=== PATIENT | male | born 1990 | race Caucasian/White ===

== ENCOUNTER 2018-03-27 09:05 | Emergency (ER) | payer BC ==
--- NOTE | 2018-03-27 09:50 | EDPHY ---
H & P Time Seen by Provider: 03/27/18 09:50 HPI/ROS: CHIEF COMPLAINT: Posterior chest pain after ketamine HISTORY OF PRESENT ILLNESS: Patient was partying all day on Friday doing ketamine by snorting started noticing his back hurt that day. He presents with pain in his posterior chest on the lower side, bilateral and severe. Worse with movement and associated with not being able to sleep. No coughing or shortness of breath or vomiting or hematuria. He does have it sometimes radiates to his friend. He is specifically concerned about his kidneys, which he read about on the Internet, and the degree of pain. Denies palpitations or syncope. REVIEW OF SYSTEMS: Eye: no change in vision ENT: no sore throat Cardiac: HPI Pulmonary: HPI Abdomen: no vomiting, diarrhea, abdominal pain Musculoskeletal: HPI Skin: no rash Neuro: no headache Constitutional: no fever : no urinary symptoms A comprehensive 10 point review of systems is otherwise negative aside from elements mentioned in the history of present illness. PAST MEDICAL HISTORY: Negative Family history: Negative for venous thromboembolism or coronary disease or aortic dissection. Social history: Ketamine as above, no alcohol, recently drove to [place] and travels a lot to go see [employer]. General Appearance: Alert and conversant, cooperative. Eyes: No scleral icterus. ENT, Mouth: Normal mucous membranes. Respiratory: Normal respiratory effort, breath sounds equal, lungs are clear to auscultation. No crepitus, speaks in full sentences. Cardiovascular: Regular rate and rhythm. Gastrointestinal: Minimal epigastric tenderness but no Ramirez sign and no rebound or guarding. Bowel sounds present and not distended. Neurological: Alert, face symmetric, normal motor and sensory in extremities. Ambulatory. Skin: Warm and dry, no rashes. No zoster or bruising. Musculoskeletal: No peripheral edema. No calf tenderness. Psychiatric: Not agitated. Emergency Department course/MDM: Differential considered including but not limited to pancreatitis, renal problem or stone, UTI, pneumothorax, pulmonary embolism, cardiac problem, rhabdomyolysis. EKG, chest x-ray and D-dimer, labs to include LFT and lipase and renal function. Low pretest probability for pulmonary embolism. Mullen x1 for pain. 1134: Results discussed with the patient, I think it is unlikely he has acute medical or surgical emergent condition. Symptomatic treatment and follow-up for referral. Smoking Status: Never smoked Constitutional: Initial Vital Signs Temperature (C) 36.8 C 03/27/18 09:10 Heart Rate 85 03/27/18 09:10 Respiratory Rate 18 03/27/18 09:10 Blood Pressure 141/86 H 03/27/18 09:10 O2 Sat (%) 97 03/27/18 09:10 O2 Delivery Mode Room Air Allergies/Adverse Reactions: No Known Allergies Allergy (Unverified 03/27/18 09:10) Home Medications: Medication Instructions Recorded Benadryl 03/27/18 Hydrocodone/APAP 5325 [Mullen 1 tab PO Q4-6PRN PRN #11 tab 03/27/18 5/325] Medical Decision Making - Diagnostics EKG Interpretation: 12-lead EKG interpreted by me; official reading is in computer system. My interpretation is sinus rhythm with borderline right axis, no acute ischemic changes. Imaging Results: Imaging Impressions Chest X-Ray 03/27/18 09:58 Impression: Clear lungs. No acute process. Imaging: I viewed and interpreted images myself - Data Points Laboratory Results: Laboratory Results 03/27/18 10:20 03/27/18 10:20 03/27/18 03/27/18 03/27/18 10:20 10:20 10:20 WBC RBC Hgb Hct MCV MCH MCHC RDW Plt Count MPV Neut % (Auto) Lymph % (Auto) Victoria % (Auto) Eos % (Auto) Baso % (Auto) Nucleat RBC Rel Count Absolute Neuts (auto) Absolute Lymphs (auto) Absolute Monos (auto) Absolute Eos (auto) Absolute Basos (auto) Absolute Nucleated RBC Immature Gran % Immature Gran # D-Dimer 0.29 ug/mLFEU ug/mLFEU (0.00-0.50) Sodium 142 mEq/L mEq/L (135-145) Potassium 3.9 mEq/L mEq/L (3.5-5.2) Chloride 106 mEq/L mEq/L (97-110) Carbon Dioxide 26 mEq/l mEq/l (22-31) Anion Gap 10 mEq/L mEq/L (6-14) BUN 10 mg/dL mg/dL (7-23) Creatinine 1.2 mg/dL mg/dL (0.7-1.3) Estimated GFR > 60 Glucose 99 mg/dL mg/dL (70-100) Calcium 9.4 mg/dL mg/dL (8.5-10.4) Total Bilirubin 0.4 mg/dL mg/dL (0.1-1.4) Conjugated Bilirubin 0.2 mg/dL mg/dL (0.0-0.5) Unconjugated Bilirubin 0.2 mg/dL mg/dL (0.0-1.1) AST 34 IU/L IU/L (17-59) ALT 50 IU/L IU/L (21-72) Alkaline Phosphatase 96 IU/L IU/L (38-126) Creatine Kinase 100 IU/L IU/L (0-224) POC Troponin I Total Protein 7.9 g/dL g/dL (6.3-8.2) Albumin 4.5 g/dL g/dL (3.5-5.0) Lipase 103 IU/L IU/L (23-300) 03/27/18 03/27/18 10:20 10:14 WBC 11.59 10^3/uL H 10^3/uL (3.80-9.50) RBC 5.05 10^6/uL 10^6/uL (4.40-6.38) Hgb 15.3 g/dL g/dL (13.7-17.5) Hct 44.7 % % (40.0-51.0) MCV 88.5 fL fL (81.5-99.8) MCH 30.3 pg pg (27.9-34.1) MCHC 34.2 g/dL g/dL (32.4-36.7) RDW 13.0 % % (11.5-15.2) Plt Count 463 10^3/uL H 10^3/uL (150-400) MPV 10.3 fL fL (8.7-11.7) Neut % (Auto) 75.7 % H % (39.3-74.2) Lymph % (Auto) 13.7 % L % (15.0-45.0) Victoria % (Auto) 7.9 % % (4.5-13.0) Eos % (Auto) 1.8 % % (0.6-7.6) Baso % (Auto) 0.6 % % (0.3-1.7) Nucleat RBC Rel Count 0.0 % % (0.0-0.2) Absolute Neuts (auto) 8.76 10^3/uL H 10^3/uL (1.70-6.50) Absolute Lymphs (auto) 1.59 10^3/uL 10^3/uL (1.00-3.00) Absolute Monos (auto) 0.92 10^3/uL H 10^3/uL (0.30-0.80) Absolute Eos (auto) 0.21 10^3/uL 10^3/uL (0.03-0.40) Absolute Basos (auto) 0.07 10^3/uL 10^3/uL (0.02-0.10) Absolute Nucleated RBC 0.00 10^3/uL 10^3/uL (0-0.01) Immature Gran % 0.3 % % (0.0-1.1) Immature Gran # 0.04 10^3/uL 10^3/uL (0.00-0.10) D-Dimer Sodium Potassium Chloride Carbon Dioxide Anion Gap BUN Creatinine Estimated GFR Glucose Calcium Total Bilirubin Conjugated Bilirubin Unconjugated Bilirubin AST ALT Alkaline Phosphatase Creatine Kinase POC Troponin I 0.00 ng/mL ng/mL (0.00-0.08) Total Protein Albumin Lipase Medications Given: Discontinued Medications Hydrocodone Bitart/Acetaminophen (Mullen 5/325) 1 tab PO EDNOW ONE Stop: 03/27/18 09:59 Last Admin: 03/27/18 10:14 Dose: 1 tab Ibuprofen (Motrin) 600 mg PO EDNOW ONE Stop: 03/27/18 11:35 Last Admin: 03/27/18 11:56 Dose: 600 mg Miscellaneous Medication (Icy Hot Lidocaine/Menthol 4%/1% Patch) 1 patch TD EDNOW ONE Stop: 03/27/18 12:10 Last Admin: 03/27/18 12:10 Dose: 1 patch Point of Care Test Results: Chemistry 03/27/18 10:14 POC Troponin I 0.00 ng/mL ng/mL (0.00-0.08) Departure - Departure Disposition: Home, Routine, Self-Care Clinical Impression: Acute upper back pain Condition: Good Instructions: Back Pain (ED) Additional Instructions: Ibuprofen 600 mg every 6-8 hours for the next 3 days. Referrals: Erma Santos MD [Medical Doctor] - As per Instructions Prescriptions: Hydrocodone/APAP 5/325 [Mullen 5/325] 1 tab PO Q4-6PRN PRN #11 tab PRN Reason: For Pain
--- NOTE | 2018-03-27 09:51 | CPEKG ---
Test Reason : OPEN Blood Pressure : / mmHG Vent. Rate : 077 BPM Atrial Rate : 078 BPM P-R Int : 144 ms QRS Dur : 102 ms QT Int : 388 ms P-R-T Axes : 077 091 062 degrees QTc Int : 440 ms Sinus rhythm Borderline right axis deviation Confirmed by Jose Antonio Menard ([id number]) on 03/27/2018 9:50:45 AM Referred By: PHYSICIAN ED Confirmed By:Jose Antonio Menard
[2018-03-27] MEDS ORDERED: HYDROCODONE/APAP 5/325 TAB PO ONE (09:58)
[2018-03-27 10:33] LABS: PLATELET COUNT 463 10^3/uL (150-400)
[2018-03-27] MEDS ORDERED: IBUPROFEN 600 MG TAB PO ONE (11:34)
[2018-03-27 12:04] VITALS: BP 110/89
[2018-03-27] MEDS ORDERED: LIDOCAINE 4%/MENTHOL 1% PATCH TD ONE ×2 (12:08→12:09)
[2018-03-27 12:16] LABS: CREATINE KINASE 100 IU/L (0-224)
[2018-03-27] MEDS ORDERED: PATCH REMOVAL 1 EA PATCH TD SCH (21:00)
== END 2018-03-27 12:49 | disposition home or self-care (01) ==
DX: M54.6 Pain in thoracic spine (principal); R94.31 Abnormal electrocardiogram [ECG] [EKG]
CPT/HCPCS: 84484-ER

== ENCOUNTER 2018-03-28 16:23 | Emergency (ER) | payer BC ==
--- NOTE | 2018-03-28 16:56 | EDPHY ---
HPI/HX/ROS/PE/MDM Narrative: CHIEF COMPLAINT: Back and abdominal pain HISTORY OF PRESENT ILLNESS: The patient is a 27 y/o male complaining of back and abdominal pain onset Friday, 4 days ago. The patient was partying on Friday and Friday, which included snorting Ketamine. Patient does use marijuana daily, reporting he smokes 10-20 times a day. He denies IV drug use or drinking excessive amount of alcohol. On Friday, patient developed lower posterior chest back pain as well as epigastric pain. Since that time he has reported waxing and waning episodes of severe epigastric and right upper quadrant pain, pain which feels like it radiates around to the lower chest posteriorly, and significant discomfort in the flank area. Patient had negative workup at that time which included labs and a chest x-ray. He was discharged with [place]. He reports having vomiting when taking the [place]. He also had some diarrhea. The pain significantly increased at 15:00, 2 hours ago. This pain is primarily located in his lower posterior chest and upper flank as well as in the epigastrium. No fever, chills, anterior chest pain, shortness of breath, palpitations, headache, lightheadedness. REVIEW OF SYSTEMS: Aside from elements discussed in the HPI, a comprehensive 10-point review of systems was reviewed and is negative. PAST MEDICAL HISTORY: Denies SOCIAL HISTORY: Ketamine use, no alcohol, recently drove to [place] from [place] VITAL SIGNS: Reviewed by me GENERAL: Well-developed, well-nourished, somewhat restless. Complaining of severe epigastric pain and pain in the lower posterior chest. Of note, the patient has 10-12 topical menthol patches on his back to help with this pain. HEENT: Atraumatic. Eyes: No icterus, no injection. Mouth: moist mucous membranes. No erythema or lesions. Neck: supple with no adenopathy. LUNGS: Clear to auscultation bilaterally, no wheezes, rhonchi or rales. CARDIAC: Regular rate and rhythm, no rubs, murmurs or gallops. ABDOMEN: RUQ and epigastric tenderness to palpation. No rebound. Nondistended. Soft, nondistended, bowel sounds normal. BACK: No midline spinal tenderness. No CVA tenderness. Patient indicates the majority of the pain is posterior chest. There is a palpable component to it. No crepitus noted. EXTREMITIES: No trauma. No edema. Range of motion is normal throughout. NEURO: Alert and oriented, grossly nonfocal. SKIN: Warm and dry, no rash. PSYCHIATRIC: Normal mentation, no agitation. Portions of this note were transcribed by a biomedical engineering technician. I personally performed a history, physical exam, medical decision making, and confirmed accuracy of information the transcribed note. ED Course: The patient is a 27 y/o male complaining of back and abdominal pain onset Friday, 4 days ago. He was seen in this emergency department yesterday and had a normal work up. He was sent home with a prescription for Vicodin but continues to have the pain and cramping. In addition he has continued to have intermittent nausea vomiting. This pain is primarily located in his lower posterior chest and upper flank. On exam he has RUQ and epigastric tenderness to palpation. He does not have any midline spinal tenderness. His lungs are also clear. Labs ordered; 1L IV NS and 0.5mg IV Dilaudid administered. 1741: Labs are normal, no white count, normal LFTs, normal lipase. Normal H pylori. 1900: I reviewed patient's UA which reveals 5-10 whites per high-power field, no blood. Will order CT scan to further evaluate lower chest pathology, kidneys , bowels. 2009: I spoke with the radiologist who reports that the patient has a normal abdominopelvic CT. 2030: Patient reports that his pain has improved since being here. He is unsure if it is mostly related to fluids or to a PPI. Evaluation thus far demonstrates no evidence of gallbladder disease, pancreatitis, H pylori infection, or intra-abdominal etiologies. Patient does have small amount of bacteria in his urine. Reassessed patient and discussed laboratory and imaging studies. There have been some reports of ketamine causing biliary colic type symptoms as well as ketamine causing urinary inflammation and a uropathy. Of note, the patch patient also does smoke marijuana heavily and daily. He may be developing a cannabinoid hyperemesis syndrome or abdominal pain related to chronic cannabinoid use. Plan was made to discharge the patient with oxycodone to use as needed for pain , Keflex for possible urinary tract infection, Ativan for abdominal pain, and Phenergan to use as needed for nausea. MDM: After obtaining the patient's history and performing an examination, differential diagnosis considered included but was not limited to appendicitis, cholecystitis, gastritis, pancreatitis, kidney stones, urinary tract infections and other causes. - Data Points Imaging Results: Imaging Impressions Abdomen CT 03/28/18 18:58 Impression: 1. Normal CT abdomen and pelvis with contrast enhancement. 2. No CT evidence of appendicitis, abscess or bowel obstruction. Findings discussed with Stephani Evans MD at 20:11 hour, 03/28/2018. Imaging: Discussed imaging studies w/ call center coordinator Radiologist, I viewed and interpreted images myself Laboratory Results: Laboratory Results 03/28/18 17:10 03/28/18 17:10 03/28/18 03/28/18 03/28/18 18:00 17:10 17:10 WBC RBC Hgb Hct MCV MCH MCHC RDW Plt Count MPV Neut % (Auto) Lymph % (Auto) Emanuel % (Auto) Eos % (Auto) Baso % (Auto) Nucleat RBC Rel Count Absolute Neuts (auto) Absolute Lymphs (auto) Absolute Monos (auto) Absolute Eos (auto) Absolute Basos (auto) Absolute Nucleated RBC Immature Gran % Immature Gran # Sodium 136 mEq/L mEq/L (135-145) Potassium 3.9 mEq/L mEq/L (3.5-5.2) Chloride 103 mEq/L mEq/L (97-110) Carbon Dioxide 25 mEq/l mEq/l (22-31) Anion Gap 8 mEq/L mEq/L (6-14) BUN 11 mg/dL mg/dL (7-23) Creatinine 1.1 mg/dL mg/dL (0.7-1.3) Estimated GFR > 60 Glucose 91 mg/dL mg/dL (70-100) Calcium 9.3 mg/dL mg/dL (8.5-10.4) Total Bilirubin 0.3 mg/dL mg/dL (0.1-1.4) Conjugated Bilirubin 0.2 mg/dL mg/dL (0.0-0.5) Unconjugated Bilirubin 0.1 mg/dL mg/dL (0.0-1.1) AST 30 IU/L IU/L (17-59) ALT 36 IU/L IU/L (21-72) Alkaline Phosphatase 84 IU/L IU/L (38-126) Total Protein 7.2 g/dL g/dL (6.3-8.2) Albumin 4.2 g/dL g/dL (3.5-5.0) Lipase 106 IU/L IU/L (23-300) Urine Color YELLOW Urine Appearance CLEAR Urine pH 5.0 (5.0-7.5) Ur Specific [place] 1.014 (1.002-1.030) Urine Protein NEGATIVE (NEGATIVE) Urine Ketones NEGATIVE (NEGATIVE) Urine Blood NEGATIVE (NEGATIVE) Urine Nitrate NEGATIVE (NEGATIVE) Urine Bilirubin NEGATIVE (NEGATIVE) Urine Urobilinogen NEGATIVE EU EU (0.2-1.0) Ur Leukocyte Esterase NEGATIVE (NEGATIVE) Urine RBC 1-3 /hpf /hpf (0-3) Urine WBC 5-10 /hpf H /hpf (0-3) Ur Epithelial Cells NONE SEEN /lpf /lpf (NONE-1+) Urine Mucus TRACE /lpf /lpf (NONE-1+) Urine Glucose NEGATIVE (NEGATIVE) H. pylori IgG Antibody NEGATIVE (NEG) 03/28/18 17:10 WBC 8.96 10^3/uL 10^3/uL (3.80-9.50) RBC 5.04 10^6/uL 10^6/uL (4.40-6.38) Hgb 15.4 g/dL g/dL (13.7-17.5) Hct 45.8 % % (40.0-51.0) MCV 90.9 fL fL (81.5-99.8) MCH 30.6 pg pg (27.9-34.1) MCHC 33.6 g/dL g/dL (32.4-36.7) RDW 12.8 % % (11.5-15.2) Plt Count 451 10^3/uL H 10^3/uL (150-400) MPV 10.2 fL fL (8.7-11.7) Neut % (Auto) 65.6 % % (39.3-74.2) Lymph % (Auto) 21.2 % % (15.0-45.0) Emanuel % (Auto) 7.8 % % (4.5-13.0) Eos % (Auto) 4.2 % % (0.6-7.6) Baso % (Auto) 1.0 % % (0.3-1.7) Nucleat RBC Rel Count 0.0 % % (0.0-0.2) Absolute Neuts (auto) 5.87 10^3/uL 10^3/uL (1.70-6.50) Absolute Lymphs (auto) 1.90 10^3/uL 10^3/uL (1.00-3.00) Absolute Monos (auto) 0.70 10^3/uL 10^3/uL (0.30-0.80) Absolute Eos (auto) 0.38 10^3/uL 10^3/uL (0.03-0.40) Absolute Basos (auto) 0.09 10^3/uL 10^3/uL (0.02-0.10) Absolute Nucleated RBC 0.00 10^3/uL 10^3/uL (0-0.01) Immature Gran % 0.2 % % (0.0-1.1) Immature Gran # 0.02 10^3/uL 10^3/uL (0.00-0.10) Sodium Potassium Chloride Carbon Dioxide Anion Gap BUN Creatinine Estimated GFR Glucose Calcium Total Bilirubin Conjugated Bilirubin Unconjugated Bilirubin AST ALT Alkaline Phosphatase Total Protein Albumin Lipase Urine Color Urine Appearance Urine pH Ur Specific [place] Urine Protein Urine Ketones Urine Blood Urine Nitrate Urine Bilirubin Urine Urobilinogen Ur Leukocyte Esterase Urine RBC Urine WBC Ur Epithelial Cells Urine Mucus Urine Glucose H. pylori IgG Antibody Medications Given: Discontinued Medications Cephalexin (Keflex 500 Mg Prepack#4) 1 btl TAKEHOME EDNOW ONE PRN Reason: Protocol Stop: 03/28/18 20:55 Last Admin: 03/28/18 21:11 Dose: 1 btl Cephalexin HCl (Keflex) 500 mg PO EDNOW ONE PRN Reason: Protocol Stop: 03/28/18 20:48 Last Admin: 03/28/18 20:58 Dose: 500 mg Hydromorphone HCl (Dilaudid) 0.5 mg IVP EDNOW ONE Stop: 03/28/18 17:13 Last Admin: 03/28/18 17:17 Dose: 0.5 mg Sodium Chloride (Ns) 1,000 mls @ 0 mls/hr IV EDNOW ONE; Wide Open PRN Reason: Protocol Stop: 03/28/18 17:13 Last Admin: 03/28/18 17:17 Dose: 1,000 mls Ketorolac Tromethamine (Toradol) 15 mg IVP EDNOW ONE Stop: 03/28/18 20:49 Last Admin: 03/28/18 20:58 Dose: 15 mg Lorazepam (Ativan Injection) 1 mg IVP EDNOW ONE Stop: 03/28/18 20:48 Last Admin: 03/28/18 20:58 Dose: 1 mg Lorazepam (Ativan 1 Mg Prepack#4) 1 btl TAKEHOME EDNOW ONE Stop: 03/28/18 20:55 Last Admin: 03/28/18 21:13 Dose: 1 btl Oxycodone/Acetaminophen (Percocet 5/325mg Prepack#4) 1 btl TAKEHOME EDNOW ONE Stop: 03/28/18 20:55 Last Admin: 03/28/18 21:09 Dose: 1 btl Pantoprazole Sodium (Protonix) 40 mg IVP EDNOW ONE Stop: 03/28/18 19:03 Last Admin: 03/28/18 19:10 Dose: 40 mg Promethazine HCl (Phenergan 25 Mg Prepack #4) 1 btl TAKEHOME EDNOW ONE Stop: 03/28/18 20:55 Last Admin: 03/28/18 21:13 Dose: 1 btl General Time Seen by Provider: 03/28/18 16:53 Initial Vital Signs: Initial Vital Signs Temperature (C) 37.0 C 03/28/18 16:28 Heart Rate 79 03/28/18 16:28 Respiratory Rate 16 03/28/18 16:28 Blood Pressure 148/97 H 03/28/18 16:28 O2 Sat (%) 98 03/28/18 16:28 O2 Delivery Mode Room Air Allergies/Adverse Reactions: No Known Allergies Allergy (Verified 03/28/18 16:28) Home Medications: Medication Instructions Recorded Benadryl 03/27/18 Hydrocodone/APAP 5/325 [[place] 1 tab PO Q4-6PRN PRN #11 tab 03/27/18 5/325] Cephalexin [Keflex (RX)] 500 mg PO TID 7 Days cap 03/28/18 Departure - Departure Disposition: Home, Routine, Self-Care Clinical Impression: Acute abdominal pain UTI (urinary tract infection) Qualifiers: Urinary tract infection type: site unspecified Hematuria presence: without hematuria Qualified Code(s): N39.0 - Urinary tract infection, site not specified Condition: Good Instructions: Cephalexin (By mouth), Oxycodone/Acetaminophen (By mouth), Lorazepam (By mouth), Promethazine (By mouth), Urinary Tract Infection in Men ( ED) Additional Instructions: 1. You been given a prescription for oxycodone. You may use this as needed for more severe pain. 1 tablet every 6 hr. 2. You been given a prepack of Ativan. You may use this as needed for abdominal pain. 1/2 to 1 tablet every 12 hr. 3. You been given a prescription in a prepack of Phenergan. Use this as needed for ongoing nausea. Half tab every 8 hr for nausea. 4. I also recommend that you begin taking omeprazole. This is available over- the-counter. It will help with any heartburn or gastritis. 5. Please take antibiotic, Keflex, as directed. 500 mg by mouth 3 times a day for 7 days. Urine has been sent for culture. If you do not have a urinary tract infection, you may stop taking the Keflex. You have to call the emergency department back in 24-36 hr in order to obtain the results of urine culture. 6. Please return to the emergency department if her symptoms are worsening, especially if you develop a fever, recurrent vomiting, cough, shortness of breath, increasing pain, other conditions. Referrals: Viktoriya Lazo MD [Medical Doctor] - As per Instructions Prescriptions: Cephalexin [Keflex (RX)] 500 mg PO TID 7 Days cap Report Scribed for: Stephani Evans Report Scribed by: Tejal Stewart Date of Report: 03/28/18 Time of Report: 16:56
[2018-03-28] MEDS ORDERED: HYDROmorphONE/DILAUDID 2 MG/ML INJ IVP ONE (17:12)
[2018-03-28] MEDS ORDERED: NS 1,000 ML IV ONE (17:12)
[2018-03-28 17:23] LABS: PLATELET COUNT 451 10^3/uL (150-400)
[2018-03-28] MEDS ORDERED: PANTOPRAZOLE SODIUM 40 MG VIAL IVP ONE (19:02)
[2018-03-28] MEDS ORDERED: IOPAMIDOL (ISOVUE 370) 100 ML BTL IV ONE (19:03)
[2018-03-28] MEDS ORDERED: CEPHALEXIN 500 MG CAP PO ONE (20:47)
[2018-03-28] MEDS ORDERED: LORazepam 2 MG/ML INJ IVP ONE (20:47)
[2018-03-28] MEDS ORDERED: KETOROLAC 15 MG/1 ML SDV IVP ONE (20:48)
[2018-03-28] MEDS ORDERED: CEPHALEXIN 500MG PREPACK#4 BTL TAKEHOME ONE (20:54)
[2018-03-28] MEDS ORDERED: PROMETHAZINE 25 MG PREPACK #4 BTL TAKEHOME ONE (20:54)
[2018-03-28] MEDS ORDERED: LORAZEPAM 1 MG PREPACK#4 BTL TAKEHOME ONE (20:54)
[2018-03-28] MEDS ORDERED: OXYCODONE/APAP 5/325MG PREPACK#4 BTL TAKEHOME ONE (20:54)
[2018-03-28 21:19] VITALS: BP 135/89
== END 2018-03-28 21:17 | disposition home or self-care (01) ==
DX: N39.0 Urinary tract infection, site not specified (principal); E86.9 Volume depletion, unspecified
CPT/HCPCS: 96374; J1170; J1885; J2060; Q9967